=== PATIENT | male | born 1970 | race Caucasian/White ===

== ENCOUNTER 2022-03-17 10:53 | Emergency (ER) | payer OTHER, MEDICAID ==
[~2022-03-17] VITALS: Ht 167.6 cm; Wt 90.7 kg
[2022-03-17] MEDS ORDERED: LORazepam 0.5 MG TAB PO ONE (13:00)
[2022-03-17 14:54] VITALS: BP 122/82
== END 2022-03-17 15:00 | disposition home or self-care (01) ==
LOC: ER 10:53
DX: K59.00 Constipation, unspecified (principal); Z88.1 Allergy status to other antibiotic agents; Z88.8 Allergy status to other drugs, medicaments and biological substances
CPT/HCPCS: 74018; 74176